=== PATIENT | female | born 1985 | race African-American/Black ===

== ENCOUNTER 2018-06-24 10:58 | Outpatient (CLI) | payer OTHER ==
[2018-06-24 12:11] LABS: BHCG - Serum Negative (NEGATIVE); Pregs Control Background? CLEAR/WHITE (CLR/WHITE); Pregs Control Bar Appear? YES (CONTROL BAR)
[2018-06-24 12:17] LABS: Hemoglobin 13.1 g/dL (12.0-16.0); Mean Corpuscular Hemoglobin 30.3 pg (27.0-31.0); Mean Corpuscular Volume 94.6 fL (78.0-98.0); Mean Platelet Volume 6.6 fL (7.4-10.4); Platelet Count 393 thou/uL (130-400); RBC Distribution Width 12.5 % (11.5-14.5); Red Blood Cell (RBC) Count 4.33 mill/uL (4.20-5.40); White Blood Cell (WBC) Count 7.4 thou/uL (4.8-10.8)
== END 2018-06-24 10:59 | disposition home or self-care (01) ==
LOC: LABBT 10:58
PROVIDERS: ATTEND Obstetrics & Gynecology
DX: Z01.812 Encounter for preprocedural laboratory examination (principal); N92.0 Excessive and frequent menstruation with regular cycle; N94.6 Dysmenorrhea, unspecified
CPT/HCPCS: 84703; 85027; 86850; 86900; 86901

== ENCOUNTER 2018-06-24 11:30 | Observation (INO) | payer OTHER ==
[2018-06-24 11:32] VITALS: BMI 49.8
--- NOTE | 2018-06-30 07:22 | HP ---
DATE OF ADMISSION: June 30, 2018. REASON FOR ADMISSION: Dysmenorrhea and menorrhagia. SCHEDULED PROCEDURES: Total laparoscopic hysterectomy and bilateral salpingectomy. HISTORY OF PRESENT ILLNESS: Ms. Hodge is a 32-year-old, 3, para 3, status post x3 with a long history of dysmenorrhea and menorrhagia. The patient has an ultrasound consistent with retroverted uterus with adenomyosis. Discussed options including endometrial ablation. The patient desires proceeding with definitive management with total laparoscopic hysterectomy. 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 Denies STD history. C-sections x3. PAST MEDICAL HISTORY: Denied. PAST SURGICAL HISTORY: C-sections, eye surgery, and hernia. SOCIAL HISTORY: Denies tobacco, alcohol, or IV drug use. ALLERGIES: KEFLEX. FAMILY HISTORY: Noncontributory. REVIEW OF SYSTEMS: Noncontributory. PHYSICAL EXAMINATION: VITAL SIGNS: White female, 5 feet 5 inches, 299 pounds, BMI 49. Blood pressure 120/80. HEENT: Within normal limits. LUNGS: Clear to auscultation bilaterally. HEART: Regular rate and rhythm. ABDOMEN: Soft and nontender. No rebound or guarding. GENITALIA: Vulvar lesions, vagina without discharge. Cervix, nulliparous, uterus is retroverted, tender on exam, 6 to 8 weeks' size. Adnexa, no masses bilaterally. EXTREMITIES: No clubbing, cyanosis, or edema. IMPRESSION: A 32-year-old with long history of dysmenorrhea and menorrhagia, consistent with adenomyosis desiring definitive surgical management. PLAN: Total laparoscopic hysterectomy and bilateral salpingectomy in [facility] on 06/30/2018 with da Chelle robot assist. We will give SCIP protocol for gynecologic surgery without cephalosporins secondary to the patient's allergy history. The patient gives verbal and informed consent. Job ID: [id number]
[2018-06-30] MEDS ORDERED: CeleCOXIB 100 MG CAP ONE (07:35)
[2018-06-30] MEDS ORDERED: Famotidine/PF 20 mg/2ml Vial ONE ×2 (07:36)
[2018-06-30] MEDS ORDERED: Bupivacaine HCl 0.5%/Epinephrine 1:200,000/PF 30 ml Vial ONE (08:01)
[2018-06-30] MEDS ORDERED: Clindamycin/D5W 900 mg/50 ml Premix Bag ONE (08:20)
[2018-06-30] MEDS ORDERED: Levofloxacin 500 mg/D5W 100 ml Premix Bag ONE (08:21)
[2018-06-30] MEDS ORDERED: Midazolam HCl 2 mg/2 ml Vial ONE (08:45)
[2018-06-30] MEDS ORDERED: Fentanyl 250 MCG/5 ML VIAL ONE (08:45)
[2018-06-30] MEDS ORDERED: HYDROcodone/Acetaminophen 10/325 mg Tablet PO PRN (12:45)
[2018-06-30] MEDS ORDERED: Simethicone Chewable 80 MG TAB PO PRN (12:45)
[2018-06-30] MEDS ORDERED: Promethazine HCl 25 MG/ML VIAL IM PRN (12:45)
[2018-06-30] MEDS ORDERED: Morphine 2 MG/ML SYRINGE SLOW IVP PRN (12:45)
[2018-06-30] MEDS ORDERED: Ondansetron PF 4 MG/2 ML Vial IVP PRN (12:45)
[2018-06-30] MEDS ORDERED: Zolpidem Tartrate 5 MG TAB PO PRN (12:45)
[2018-06-30] MEDS ORDERED: Morphine 10 MG/ML VIAL SLOW IVP PRN (12:45)
[2018-06-30] MEDS ORDERED: diphenhydrAMINE 25 MG CAP PO PRN (12:45)
[2018-06-30] MEDS ORDERED: Acetaminophen 1,000 MG in Premix Bag 1 BAG IVPB SCH (13:00)
[2018-06-30] MEDS ORDERED: Ketorolac Tromethamine 30 MG/ML VIAL IVP SCH (13:00)
[2018-06-30] MEDS ORDERED: Lidocaine 1% PF 5 ML VIAL ONE (16:49)
[2018-06-30] MEDS ORDERED: PROPOFOL 200 MG/20 ML VIAL ONE (16:49)
[2018-06-30] MEDS ORDERED: Ondansetron PF 4 MG/2 ML Vial ONE (16:49)
[2018-06-30] MEDS ORDERED: Ketorolac Tromethamine 30 MG/ML VIAL ONE (16:49)
[2018-06-30] MEDS ORDERED: Dexamethasone 20 MG/5 ML VIAL ONE (16:49)
[2018-06-30] MEDS: Ketorolac Tromethamine 30 MG/ML VIAL IVP SCH (17:57)
--- NOTE | 2018-06-30 18:03 | OP ---
DATE OF PROCEDURE: 06/30/2018 PREOPERATIVE DIAGNOSES: Dysmenorrhea and menorrhagia. POSTOPERATIVE DIAGNOSES: Dysmenorrhea and menorrhagia. PROCEDURES PERFORMED: Total laparoscopic hysterectomy and bilateral salpingectomy. RETORT FEEDER GROUND BONE: Berenice Schaefer DO. ANESTHESIA: General endotracheal, Smith Carvajal MD. MEDICATIONS: Levaquin and clindamycin per SCIP protocol preoperatively. DVT PROPHYLAXIS: SCDs. DRAINS: Mehta to gravity. OPERATIVE FINDINGS: 1. Approximately 8 weeks size uterus, appearance consistent with adenomyosis. 2. Omental adhesions to the anterior abdominal wall from previous C-sections. 3. Hemostasis. 4. Clear urine. 5. Counts were correct at the end of the procedure with normal-appearing tubes and ovaries and appendix. DISPOSITION: Recovery room in good condition. DESCRIPTION OF PROCEDURE: After obtaining appropriate operative consent, the patient was taken to the operating room, where general endotracheal anesthesia was achieved without difficulty. The patient was prepped and draped in the dorsal lithotomy position with Jared stirrups. Sidearm speculum was placed in the vagina. Cervix was identified and grasped with single-tooth tenaculum. Uterus was sounded to 10 cm, and the Inga manipulator was placed with an 8-cm obturator and a 4-cm vaginal irrigationist designer. Tenaculum and speculum were removed, and Mehta catheter was placed with clear urine of 150 mL noted. Generator Rebuilder changed the gloves and turned attention to the abdominal portion of the procedure. The patient was noted to have a prior umbilical hernia repair. Marcaine 5 mL was injected approximately 2 cm above the incision for the umbilical hernia repair in the midline, and a 12-mm skin incision was made. Abdomen was elevated, and Veress needle was placed inside the abdominal cavity to get confirmation of entry into the peritoneal cavity via saline drop test. Insufflation was carried out with carbon dioxide for a maximum pressure of 15. Once this was achieved, the Veress needle was removed, and a 12-mm trocar was placed. Laparoscopic camera confirmed the entry into the peritoneal cavity without trauma to the underlying viscera. The patient was placed in Trendelenburg position, and right and left lateral Da Chelle ports were placed under direct visualization as well as an 11-mm behavioral assistant port in the right upper quadrant. Da Chelle robot was docked with monopolar scissors in the machine tool operator's right hand and bipolar fenestrated forceps in the left. Omental adhesions were noted to be without intestinal content and were taken down from the anterior abdominal wall in blunt and sharp technique. Exposure of the uterus was carried out, and findings as noted in operative findings were noted. Mesosalpinx was identified on the patient's left. The fallopian tube was elevated. Coagulation to the mesosalpinx all the way up to the insertion to the uterus was noted, and the specimen was amputated and pulled out through the behavioral assistant port. Utero-ovarian ligament, broad ligament, and round were all coagulated and transected on the patient's left. This was carried down to the level of the internal cervical os, where the vesicouterine peritoneum was incised off sharply anteriorly. Moderate adhesions were encountered in this area secondary to the patient's previous C-sections x3. Skeletonization of the uterine vessels was carried out, and the bladder was dissected off the cervix and upper vagina. Uterine vessels were coagulated and transected partially on the patient's left. Attention was turned to the right, where the identical procedure was carried out including coagulation and transection of the mesosalpinx, removal of fallopian tube, and coagulation and transection of the round, utero-ovarian, and board ligament. Completion of the vesicouterine peritoneum incision was conducted out on that side, and the bladder was again ensured to be dissected completely off the cervix and upper vagina. Skeletonization of the uterine vessels on the right was carried out. After these were coagulated, they were transected. Vagina was entered anteriorly at 12 o'clock, extended from 12 to 3, then from 3 to 6, then from 6 to 9, and from 12 to 9, amputating the specimen. This was pulled out of the vagina to maintain pneumoperitoneum. Inspection of all of the pedicles revealed they were in the uterine. The vagina was closed using a running continuous 0 PDS suture, lock suture in a 2-layer technique proceeding from the patient's right to left and back to right. The bladder was backfilled and noted to be without evidence of injury. Ureters were not identified bilaterally, but were felt to be well lateral to the surgical field. They were unable to be visualized through the peritoneum secondary to the patient's morbid obesity. Suction irrigation was carried out. Good hemostasis was noted. Tisseel was applied across all wall surfaces. The instruments were all removed. The Da Chelle undocked. Abdomen was desufflated of carbon dioxide. Trocars were removed. Fascia was reapproximated at the umbical trocar site with 0 Vicryl suture, and then the skin was reapproximated x4 using 4-0 Monocryl and Dermabond. Uterus was removed from the vagina. Vagina was inspected and noted to be hemostatic. The patient was awakened, extubated, and taken to recovery room in good condition. Job ID: [id number]
[2018-06-30] MEDS: Acetaminophen 1,000 MG in Premix Bag 1 BAG IVPB SCH (20:59)
[2018-06-30] MEDS: Sodium Chloride 0.9% 1,000 ML IV SCH ×2 (21:03→21:04)
[2018-07-01] MEDS: Ketorolac Tromethamine 30 MG/ML VIAL IVP SCH ×2 (00:28→05:43)
[2018-07-01] MEDS: Acetaminophen 1,000 MG in Premix Bag 1 BAG IVPB SCH ×2 (02:29→09:11)
[2018-07-01] MEDS: Sodium Chloride 0.9% 1,000 ML IV SCH (03:05)
[2018-07-01 06:26] LABS: Hemoglobin 12.3 g/dL (12.0-16.0); Mean Corpuscular HGB CONC 32.9 g/dL (32.0-36.0); Mean Corpuscular Hemoglobin 30.8 pg (27.0-31.0); Mean Corpuscular Volume 93.6 fL (78.0-98.0); Mean Platelet Volume 6.8 fL (7.4-10.4); Platelet Count 402 thou/uL (130-400); RBC Distribution Width 12.9 % (11.5-14.5); White Blood Cell (WBC) Count 10.3 thou/uL (4.8-10.8)
[2018-07-01 11:35] VITALS: BP 105/56; TEMP 98.2
[2018-07-01] MEDS ORDERED: HYDROcodone/Acetaminophen 10/325 mg Tablet PO PRN ×2 (17:00)
--- NOTE | 2018-07-02 08:20 | DIS ---
DATE OF ADMISSION: 06/30/2018 DATE OF DISCHARGE: 07/01/2018 PRINCIPAL PROCEDURE: Total laparoscopic hysterectomy, bilateral salpingectomy. SUMMARY OF HOSPITAL COURSE: The patient underwent a TLH on the . She had an unremarkable postoperative course. On postoperative day #1, she is voiding with ease, afebrile, good urine output, and tolerating p.o. Her perineum is dry. Her abdomen is soft, nontender. Incisions are intact and well healed. Temperature is 98.6, pulse 90, respirations 18, blood pressure 109/51. On postoperative day #1, hematocrit is 37.5% with a normal white count, normal platelet count. IMPRESSION: Doing well, status post total laparoscopic hysterectomy. Discharged at less than 24 hours postop. Postoperative pain medications sent to [facility] in [place]. Followup with [facility] in 6 weeks. Job ID: [id number]
== END 2018-07-01 13:14 | disposition home or self-care (01) ==
LOC: INTOOBSV 06-30 06:37 → SURG A 06-30 06:37 → 3SE 06-30 12:44
PROVIDERS: ADMIT Obstetrics & Gynecology; ATTEND Obstetrics & Gynecology
PROC: 0UT94ZZ Resection of Uterus, Percutaneous Endoscopic Approach (ICD-10-PCS; principal; 2018-07-01)
PROC: 0UT24ZZ Resection of Bilateral Ovaries, Percutaneous Endoscopic Approach (ICD-10-PCS; 2018-07-01)
PROC: 0UT74ZZ Resection of Bilateral Fallopian Tubes, Percutaneous Endoscopic Approach (ICD-10-PCS; 2018-07-01)
DX: N72 Inflammatory disease of cervix uteri (principal); E66.01 Morbid (severe) obesity due to excess calories; Z68.42 Body mass index [BMI] 45.0-49.9, adult; Z88.1 Allergy status to other antibiotic agents; Z98.890 Other specified postprocedural states
CPT/HCPCS: 36415; 85027; 88307; 96365; 96366; 96375; 96376; G0378; J0131; J0670; J1100; J1885; J1956; J2001; J2250; J2405; J2704; J3010; J3490; S0028